=== PATIENT | male | born 1980 | race Caucasian/White ===

== ENCOUNTER 2016-07-06 21:47 | Emergency (ER) | payer SELFPAY ==
[~2016-07-06] VITALS: Ht 177.8 cm; Wt 70.0 kg
[~2016-07-06 21:47] MED LIST: Z.0.NO CURRENT MEDS
[2016-07-06 21:49] VITALS: BP 119/66; PULSE 82; RESP 15; TEMP 97.7; O2SAT 99
[2016-07-06 21:51] VITALS: BP 117/74; PULSE 92; RESP 20; TEMP 97.4; O2SAT 99
[2016-07-06] MEDS ORDERED: diphenhydrAMINE HCL 50 MG/ML VIAL IV PUSH ONE (22:00)
[2016-07-06] MEDS ORDERED: methylPREDNISolone SOD SUCC 125 MG/2 ML VIAL IV PUSH ONE (22:00)
[2016-07-06] MEDS ORDERED: SODIUM CHLOR 0.9% 1000 ML INJ 1,000 ML IV ONE (22:00)
[2016-07-06] MEDS ORDERED: AUGM500T7 PO (22:02)
--- NOTE | 2016-07-06 22:09 | PD ---
HPI Chief Complaint: Allergic/Adverse Reaction Time Seen by Provider: 21:58 Travel History International Travel<30 days: No Contact w/Intl Traveler<30days: No Traveled to known affect area: No History of Present Illness HPI So 36-year-old man who presents to the emergency department complaining of a possible allergic reaction. He had some root canals were redone. He was given a prescription for Augmentin. He took 2 Augmentin today and about 30 minutes afterward had the feeling of diffuse itching and pruritus over his skin, as well as painful myalgias diffusely. He had 6 episodes of nausea and vomiting. States his chest feels tight. He states he had similar symptoms after taking a penicillin drug week or 2 ago and his symptoms lasted for a day but were not this bad. No past medical history. No history of allergic reactions. History Past Medical History Medical History: Denies Significant Hx Tetanus Vaccination: Unknown Influenza Vaccination: No Social History Alcohol Use: No Tobacco Use: No Allergies-Medications (Allergen,Severity, Reaction): Coded Allergies: No Known Allergies (Verified , 12/20/10) Reported Meds & Prescriptions Reported Meds & Active Scripts Active Reported Augmentin (Amoxicillin-Clavulanate) 500-125 mg Tab 500 Mg PO TID Review of Systems Except as stated in HPI: all other systems reviewed are Neg Physical Exam Narrative GENERAL: Is a well-appearing 36-year-old man, no acute distress. SKIN: Warm and dry. There is no obvious urticaria or other rash. HEAD: Atraumatic. Normocephalic. EYES: Pupils equal and round. No scleral icterus. No injection or drainage. ENT: No nasal bleeding or discharge. Mucous membranes pink and moist. NECK: Trachea midline. No JVD. CARDIOVASCULAR: Regular rate and rhythm. No murmur appreciated. No wheezing. RESPIRATORY: No accessory muscle use. Clear to auscultation. Breath sounds equal bilaterally. GASTROINTESTINAL: Abdomen soft, non-tender, nondistended. Hepatic and splenic margins not palpable. MUSCULOSKELETAL: No obvious deformities. No edema. NEUROLOGICAL: Awake and alert. No obvious cranial nerve deficits. Motor grossly within normal limits. Normal speech. Data Data Last Documented VS Vital Signs Date Time Temp Pulse Resp B/P Pulse Ox O2 Delivery O2 Flow Rate FiO2 07/06/16 22:28 101 18 109/65 100 Room Air 07/06/16 21:51 97.4 Orders Sodium Chlor 0.9% 1000 Ml Inj (Ns 1000 M (07/06/16 22:00) Methylprednisolone So Succ Inj (Solumedr (07/06/16 22:00) Diphenhydramine Inj (Benadryl Inj) (07/06/16 22:00) Complete Blood Count With Diff (07/06/16 21:58) Comprehensive Metabolic Panel (07/06/16 21:58) Iv Access Insert/Monitor (07/06/16 21:58) Ketorolac Inj (Toradol Inj) (07/06/16 23:00) Labs Laboratory Tests Test 07/06/16 22:05 White Blood Count 6.6 TH/MM3 Red Blood Count 5.22 MIL/MM3 Hemoglobin 14.8 GM/DL Hematocrit 42.5 % Mean Corpuscular Volume 81.4 FL Mean Corpuscular Hemoglobin 28.3 PG Mean Corpuscular Hemoglobin 34.8 % Concent Red Cell Distribution Width 12.8 % Platelet Count 213 TH/MM3 Mean Platelet Volume 8.3 FL Neutrophils (%) (Auto) 74.1 % Lymphocytes (%) (Auto) 23.1 % Monocytes (%) (Auto) 1.8 % Eosinophils (%) (Auto) 0.2 % Basophils (%) (Auto) 0.8 % Neutrophils # (Auto) 4.9 TH/MM3 Lymphocytes # (Auto) 1.5 TH/MM3 Monocytes # (Auto) 0.1 TH/MM3 Eosinophils # (Auto) 0.0 TH/MM3 Basophils # (Auto) 0.1 TH/MM3 CBC Comment DIFF FINAL Differential Comment Sodium Level 140 MEQ/L Potassium Level 3.3 MEQ/L Chloride Level 102 MEQ/L Carbon Dioxide Level 29.1 MEQ/L Anion Gap 9 MEQ/L Blood Urea Nitrogen 18 MG/DL Creatinine 0.93 MG/DL Estimat Glomerular Filtration 93 ML/MIN Rate Random Glucose 131 MG/DL Calcium Level 9.2 MG/DL Total Bilirubin 1.0 MG/DL Aspartate Amino Transf 47 U/L (AST/SGOT) Alanine Aminotransferase 102 U/L (ALT/SGPT) Alkaline Phosphatase 58 U/L Total Protein 7.9 GM/DL Albumin 4.4 GM/DL [facility] Medical Decision Making Medical Screen Exam Complete: Yes Emergency Medical Condition: Yes Interpretation(s) LABS: CBC is unremarkable. CMP is generally unremarkable. Differential Diagnosis Allergic reaction, electrolyte abnormality, disseminated infection, other Narrative Course Medical decision making INITIAL: Is a 36-year-old man who presents to the emergency department with what seems to be an allergic reaction. He had nausea vomiting, chest tightness , pruritus. He however does not have urticarial, discernible wheezing, or other obvious manifestations of an allergic reaction. He seemed to start abruptly after taking Augmentin, sounds like he took amoxicillin a week or so ago with similar symptoms. He looks overall well. We'll give him fluids, steroids. He took any histamines already. We'll monitor him in the emergency department. Diagnosis Primary Impression: Allergic reaction Qualified Code: T78.40XA - Allergic reaction, initial encounter Additional Instructions: Continue steroids for next 3 days. Follow-up with her primary doctor in the next 2-3 days. Do not take penicillin medications as probable you are allergic to them. Take clindamycin as prescribed. Med/Other Pt SpecificInfo: Prescription(s) given Scripts Clindamycin 300 Mg Eor475 Mg PO Q6H 10 Days Prov:Titi Rollins MD 07/07/16 Prednisone (Deltasone)20 Mg Tab20 Mg PO BID 3 Days Prov:Titi Rollins MD 07/07/16 Disposition: 01 DISCHARGE HOME Condition: Stable Titi Rollins MD Jul 06, 2016 22:09
[2016-07-06 22:18] LABS: AUTOMATED NEUTROPHIL # 4.9 TH/MM3 (1.8-7.7); BASOPHIL # 0.1 TH/MM3 (0-0.2); BASOPHIL % 0.8 % (0.0-2.0); EOSINOPHIL % 0.2 % (0.0-4.0); HEMATOCRIT 42.5 % (39.0-51.0); HEMO FLAGS DIFF FINAL; LYMPH % 23.1 % (9.0-44.0); LYMPHOCYTE # 1.5 TH/MM3 (1.0-4.8); MEAN CELL VOLUME 81.4 FL (80.0-100.0); MEAN CORPUSCULAR HEMOGLOBIN 28.3 PG (27.0-34.0); MEAN CORPUSCULAR HGB CONC 34.8 % (32.0-36.0); MONO % 1.8 % (0.0-8.0); NEUT % 74.1 % (16.0-70.0); PLATELET COUNT 213 TH/MM3 (150-450); RED BLOOD COUNT 5.22 MIL/MM3 (4.50-5.90); RED CELL DISTRIBUTION WIDTH 12.8 % (11.6-17.2); WHITE BLOOD COUNT 6.6 TH/MM3 (4.0-11.0)
[2016-07-06 22:28] VITALS: BP 109/65; PULSE 101; RESP 18; O2SAT 100
[2016-07-06 22:45] LABS: ALT (GPT) 102 U/L (12-78); ANION GAP 9 MEQ/L (5-15); AST (GOT) 47 U/L (15-37); BICARBONATE 29.1 MEQ/L (21.0-32.0); BLOOD UREA NITROGEN 18 MG/DL (7-18); CHLORIDE 102 MEQ/L (98-107); GLOMERULAR FILTRATION RATE 93 ML/MIN (>89); POTASSIUM 3.3 MEQ/L (3.5-5.1); SODIUM (NA) 140 MEQ/L (136-145)
[2016-07-06 22:47] LABS: ALKALINE PHOSPHATASE 58 U/L (45-117)
[2016-07-06] MEDS ORDERED: KETOROLAC TROMETHAMINE 30 MG/ML (IVP) VIAL IVP ONE (23:00)
[2016-07-06 23:40] VITALS: BP 109/65; PULSE 96; RESP 16; O2SAT 100
[2016-07-07] MEDS ORDERED: CLIN1CAP6 PO (00:02)
[2016-07-07] MEDS ORDERED: PRED-503 PO (00:02)
[2016-07-07 00:04] VITALS: BP 119/70
== END 2016-07-07 00:39 | disposition home or self-care (01) ==
LOC: NEPC 21:47
DX: T78.40XA Allergy, unspecified, initial encounter (principal); L29.9 Pruritus, unspecified; R11.2 Nausea with vomiting, unspecified; R07.89 Other chest pain; M79.1 Myalgia
CPT/HCPCS: 80053; 85025; 96361; 96374; 96375; 99283; J1885; J2930; J7030